=== PATIENT | male | born 1990 | race Caucasian/White ===

== ENCOUNTER 2020-05-28 22:06 | Emergency (ER) | payer SELFPAY ==
[~2020-05-28] VITALS: Ht 160 cm; Wt 68.8 kg
[2020-05-28 23:30] VITALS: BP 132/86
== END 2020-05-28 23:48 | disposition home or self-care (01) ==
LOC: M ED 22:06
DX: F10.120 Alcohol abuse with intoxication, uncomplicated (principal); F11.10 Opioid abuse, uncomplicated; F17.200 Nicotine dependence, unspecified, uncomplicated; M41.9 Scoliosis, unspecified

== ENCOUNTER 2021-07-06 22:45 | Emergency (ER) | payer SELFPAY ==
[~2021-07-06] VITALS: Ht 175.3 cm; Wt 72.7 kg
--- OUTSIDE RECORDS SUMMARY | 2021-07-06 22:49 | CCD ---
Author Author [facility] Organization [facility] Address Unknown Phone Unavailable Support Name Relationship Address Phone BIRMINGHAM SHERRY Next Of Kin [address] [place], [place] [id number] NEO MORRIS Next Of Kin [address] [place] [address] LOWES Next Of Kin [address] [facility] [address] [place] [address] UE Next Of Kin Unknown Unavailable KATHERINE JOHNSTONE Next Of Kin [address] [place] [address] Re-disclosure Warning The records that you are about to access may contain information from federally-assisted alcohol or drug abuse programs. If such information is present, then the following federally mandated warning applies: This information has been disclosed to you from records protected by federal confidentiality rules (42 CFR part 2). The federal rules prohibit you from making any further disclosure of this information unless further disclosure is expressly permitted by the written consent of the person to whom it pertains or as otherwise permitted by 42 CFR part 2. A general authorization for the release of medical or other information is NOT sufficient for this purpose. The Federal rules restrict any use of the information to criminally investigate or prosecute any alcohol or drug abuse patient.The records that you are about to access may contain highly sensitive health information, the redisclosure of which is protected by Article 27-F of the [place] State Public Health law. If you continue you may have access to information: Regarding HIV / AIDS; Provided by facilities licensed or operated by the [facility] Office of Mental Health; or Provided by the [facility] Office for People With Developmental Disabilities. If such information is present, then the following [facility] mandated warning applies: This information has been disclosed to you from confidential records which are protected by state law. State law prohibits you from making any further disclosure of this information without the specific written consent of the person to whom it pertains, or as otherwise permitted by law. Any unauthorized further disclosure in violation of state law may result in a fine or assisted sentence or both. A general authorization for the release of medical or other information is NOT sufficient authorization for further disc losure. Medications No Information Insurance Providers Payer name Policy type / Coverage type Policy ID Covered alliance party ID Covered alliance party's relationship to jimenes Policy Jimenes Plan Information SELF PAY SP [facility] COMM[facility] PLAN [facility] [id number] SP [id number] SELF-PAY UNAVAILABLE S UNAVAILA [facility] MEDICAID [id number] SP [id number] [facility] [id number] SP [id number] Problems, Conditions, and Diagnoses No Information Surgeries/Procedures No Information Results No Information Social History No Information
[2021-07-06 23:06] VITALS: BP 142/92
--- OUTSIDE RECORDS SUMMARY | 2021-07-06 23:33 | CCD ---
Author Author [facility] Organization [facility] Address Unknown Phone Unavailable Support Name Relationship Address Phone BIRMINGHAM SHERRY Next Of Kin [address] [place], [place] [id number] NEO MORRIS Next Of Kin [address] [place] [address] LOWES Next Of Kin [address] [facility] [address] [place] [address] UE Next Of Kin Unknown Unavailable KATHERINE JOHNSTONE Next Of Kin [address] [place] [address] Re-disclosure Warning The records that you are [...] is protected by Article 27-F of the [place] State Public Health law. If you continue you may have access to information: Regarding HIV / AIDS; Provided by facilities licensed or operated by the [facility] Office of Mental Health; or Provided by the [facility] Office for People With Developmental Disabilities. If such information is present, then the following [facility] mandated warning applies: This information has been [...] law may result in a fine or nursing home sentence or both. A general authorization for the release of medical or other information is NOT sufficient authorization for further disc losure. Medications No Information Insurance Providers Payer name Policy type / Coverage type Policy ID Covered green party ID Covered green party's relationship to jimenes Policy Jimenes Plan Information SELF PAY SP [facility] COMM[facility]AN [facility] [id number] SP [id number] SELF-PAY UNAVAILABLE S UNAVAILA [facility] MEDICAID [id number] SP [id number] [facility] [id number] SP [id number] Problems, Conditions, and Diagnoses No Information Surgeries/Procedures No Information Results No Information Social History No Information
== END 2021-07-06 23:24 | disposition left against medical advice (07) ==
LOC: M ED 22:45
DX: Z53.21 Procedure and treatment not carried out due to patient leaving prior to being seen by health care provider (principal)

== ENCOUNTER 2021-07-14 17:53 | Emergency (ER) | payer SELFPAY ==
[~2021-07-14] VITALS: Ht 157.5 cm; Wt 75.9 kg
--- OUTSIDE RECORDS SUMMARY | 2021-07-14 17:57 | CCD ---
Author Author [facility] Organization [facility] Address Unknown Phone Unavailable Support Name Relationship Address Phone BIRMINGHAM SHERRY Next Of Kin [address] [place], [place] [phone] NEO MORRIS Next Of Kin [address] [place] [address] LOWES Next Of Kin [address] [facility] [address] [place] [address] UE Next Of Kin Unknown Unavailable KATHERINE JOHNSTONE Next Of Kin [address] [place] [address] Re-disclosure Warning The records that you are [...] is protected by Article 27-F of the [place] State Public Health law. If you continue you may have access to information: Regarding HIV / AIDS; Provided by facilities licensed or operated by the [facility] Office of Mental Health; or Provided by the [facility] Office for People With Developmental Disabilities. If such information is present, then the following [facility] mandated warning applies: This information has [...] type / Coverage type Policy ID Covered democrat ID Covered democrat's relationship to jimenes Policy Jimenes Plan Information SELF PAY SP [facility] COMMUNITY PLAN [facility] [id number] SP [id number] SELF-PAY UNAVAILABLE S UNAVAILA [facility] MEDICAID [id number] SP [id number] [facility] [id number] SP [id number] Problems, Conditions, and Diagnoses No Information Surgeries/Procedures No Information Results No Information Social History No Information
[2021-07-14 18:49] VITALS: BP 121/81
[2021-07-14] MEDS ORDERED: HOME MED LIST COMPLETE! XX SCH (22:30)
--- OUTSIDE RECORDS SUMMARY | 2021-07-14 23:47 | CCD ---
Author Author [facility] Organization [facility] Address Unknown Phone Unavailable Support Name Relationship Address Phone BIRMINGHAM SHERRY Next Of Kin [address] [place], [place] [phone] NEO MORRIS Next Of Kin [address] [place] [address] LOWES Next Of Kin [address] [facility] [address] [place] [address] UE Next Of Kin Unknown Unavailable KATHERINE JOHNSTONE Next Of Kin [address] [place] [address] Re-disclosure Warning The records that you are [...] is protected by Article 27-F of the [place] State Public Health law. If you continue you may have access to information: Regarding HIV / AIDS; Provided by facilities licensed or operated by the [facility] Office of Mental Health; or Provided by the [facility] Office for People With Developmental Disabilities. If such information is present, then the following [facility] mandated warning applies: This information has been [...] law may result in a fine or fpc sentence or both. A general authorization for the release of medical or other information is NOT sufficient authorization for further disc losure. Medications No Information Insurance Providers Payer name Policy type / Coverage type Policy ID Covered constitution party ID Covered constitution party's relationship to jimenes Policy Jimenes Plan Information SELF PAY SP [facility] [id number] SP [id number] SELF-PAY UNAVAILABLE S UNAVAILA [facility] MEDICAID [id number] SP [id number] [facility] [id number] SP [id number] Problems, Conditions, and Diagnoses No Information Surgeries/Procedures No Information Results No Information Social History No Information
== END 2021-07-15 00:13 | disposition home or self-care (01) ==
LOC: M ED 17:53
DX: F43.0 Acute stress reaction (principal); F32.9 Major depressive disorder, single episode, unspecified; F17.200 Nicotine dependence, unspecified, uncomplicated; F10.10 Alcohol abuse, uncomplicated

== ENCOUNTER 2022-02-17 19:38 | Emergency (ER) | payer SELFPAY ==
[~2022-02-17] VITALS: Ht 157.5 cm; Wt 75.9 kg
[2022-02-17 19:38] VITALS: BP 134/78
== END 2022-02-17 20:10 | disposition left against medical advice (07) ==
LOC: M ED 19:38
DX: Z53.21 Procedure and treatment not carried out due to patient leaving prior to being seen by health care provider (principal)